=== PATIENT | male | born 1980 ===

== ENCOUNTER → 2019-02-08 | Outpatient (CLI) | payer BC | END | disposition home or self-care (01) | LOC: LAB SHORT 11:58 → PLD 11:58 | DX: D22.71 Melanocytic nevi of right lower limb, including hip (principal) | CPT/HCPCS: 88305 ==

== ENCOUNTER → 2019-03-07 | Outpatient (CLI) | payer BC | END | disposition home or self-care (01) | LOC: PLD 08:05 → LAB SHORT 08:05 | DX: D48.5 Neoplasm of uncertain behavior of skin (principal) | CPT/HCPCS: 88304 ==

== ENCOUNTER 2025-02-09 06:10 | Day surgery (SDC) | payer BC ==
[~2025-02-09] VITALS: Ht 190.5 cm; Wt 158.7 kg
[~2025-02-09 06:10] MED LIST: ATOR20 PO; Clomiphene Citr50 MG PO; IBUP800 PO; METAMUCIL POWD575 GM PO; Ventolin5 MG/1 ML INH; Zestril30 MG PO
[2025-02-09] MEDS ORDERED: Ampicillin Sod/Sulbactam Sod 3 GM ONE (06:31)
[2025-02-09] MEDS ORDERED: Bupivacaine 0.5% W/EPI 1:200000 SDV 30 ML Vial ONE (06:51)
[2025-02-09] MEDS ORDERED: FentaNYL Citrate 50 MCG/ML 2 ML Injection ONE (07:16)
[2025-02-09] MEDS ORDERED: Rocuronium Bromide 10 MG/ML 5ML Injection IV ONE (07:17)
[2025-02-09] MEDS ORDERED: Ondansetron HCl 2 MG / ML 2ML Vial ONE (08:03)
[2025-02-09] MEDS ORDERED: Glycopyrrolate 0.2 MG/ML 5ML VIAL ONE (08:03)
[2025-02-09] MEDS ORDERED: Neostigmine Methylsulfate 5MG/5ML SYR ONE (08:03)
[2025-02-09] MEDS ORDERED: Ketorolac Tromethamine 30mg Vial ONE (08:03)
[2025-02-09 08:41] VITALS: BP 103/62
--- NOTE | 2025-02-09 09:26 | NUR ---
02/09/25 0926 Kaden Richey PT DENIED PAIN OR NAUSEA BY TIME OF DISCHARGE. TOLERATING FLLUIDS.
== END 2025-02-09 09:20 | disposition home or self-care (01) ==
LOC: ORSCSDS 06:10
PROVIDERS: Surgery
PROC: 0HB9XZZ Excision of Perineum Skin, External Approach (ICD-10-PCS; principal; 2025-02-09 07:30)
PROC: 0DJD8ZZ Inspection of Lower Intestinal Tract, Via Natural or Artificial Opening Endoscopic (ICD-10-PCS; principal; 2025-02-09 07:30)
DX: K62.9 Disease of anus and rectum, unspecified (principal); K60.30 Anal fistula, unspecified; Z83.719 Family history of colon polyps, unspecified; I10 Essential (primary) hypertension; G47.33 Obstructive sleep apnea (adult) (pediatric); E66.9 Obesity, unspecified; Z68.41 Body mass index [BMI] 40.0-44.9, adult; Z79.899 Other long term (current) drug therapy
CPT/HCPCS: 88305; J0295; J1885; J2003; J2405; J2704; J2710; J3010; J7120